=== PATIENT | female | born 2000 | race African-American/Black ===

== ENCOUNTER 2024-11-05 12:30 | Emergency (ER) | payer MEDICAID ==
[~2024-11-05] VITALS: Ht 167.6 cm; Wt 60.0 kg
[2024-11-05 12:51] VITALS: O2SAT 100
[2024-11-05] MEDS: ACETAMINOPHEN 325MG TABLET PO STA (16:25)
[2024-11-05] MEDS ORDERED: NAPR-681 PO (18:17)
[2024-11-05 19:37] VITALS: BP 118/79; PULSE 98; RESP 20; TEMP 36.7; O2SAT 100
== END 2024-11-05 19:47 | disposition home or self-care (01) ==
LOC: ER 12:30
DX: S00.93XA Contusion of unspecified part of head, initial encounter (principal); M54.2 Cervicalgia; R07.89 Other chest pain; Y08.89XA Assault by other specified means, initial encounter; Y93.89 Activity, other specified; Y92.89 Other specified places as the place of occurrence of the external cause; Y99.8 Other external cause status
CPT/HCPCS: 71045; 81025; 99284